=== PATIENT | female | born 1945 | race Caucasian/White ===

== ENCOUNTER 2018-08-18 05:14 | Day surgery (SDC) | payer OTHER ==
[~2018-08-18 05:14] MED LIST: ASPIR 8181 MG; CRESTOR40 MG; PRINIVIL10 MG; SYNTHROID 25MG; TENORMIN100 MG; ZANTAC150 MG
== END 2018-08-18 12:35 | disposition home or self-care (01) ==
LOC: CIR.AMB 05:14
DX: M75.122 Complete rotator cuff tear or rupture of left shoulder, not specified as traumatic (principal)